=== PATIENT | female | born 1995 | race Caucasian/White ===

== ENCOUNTER 2020-06-15 09:21 | Outpatient (CLI) | payer OTHER, SELFPAY ==
[2020-06-15 09:29] VITALS: BP 123/89; PULSE 82; TEMP 35.8
[2020-06-15 09:44] VITALS: BP 108/69; PULSE 74
[2020-06-15 10:00] VITALS: BP 107/69; PULSE 72
[2020-06-15 10:14] VITALS: BP 108/68; PULSE 67
[2020-06-15 10:18] VITALS: RESP 17
[2020-06-15 10:30] VITALS: BP 119/82; PULSE 66
[2020-06-15 10:43] VITALS: BMI 24.5
== END 2020-06-15 10:43 | disposition home or self-care (01) ==
LOC: OPOB 09:22 → OBGYN 10:40
PROVIDERS: Visit Provider Family Medicine
DX: O26.899 Other specified pregnancy related conditions, unspecified trimester (principal); Z3A.00 Weeks of gestation of pregnancy not specified; R10.9 Unspecified abdominal pain
CPT/HCPCS: 59025; 99211

== ENCOUNTER 2020-06-15 17:40 | Inpatient (IN) | payer OTHER, SELFPAY ==
[2020-06-15] VITALS (53 sets, daily range): BP systolic 101–132; BP diastolic 60–86; PULSE 60–122; RESP 18; TEMP 36.6–36.9; O2SAT 92–98; BMI 24.5
[2020-06-15 18:19] LABS: Basophils # 0.1 10^3/uL (0.0-0.1); Basophils % 0.4 %; Eosinophils # 0.1 10^3/uL (0.0-0.8); Eosinophils % 0.4 %; Hematocrit 36.4 % (37.0-47.0); Hemoglobin 11.8 g/dL (11.5-15.3); Lymphocytes # 1.7 10^3/uL (0.8-4.8); Lymphocytes % 10.2 %; Mean Corpuscular HGB Conc 32.4 g/dL (30.0-36.0); Mean Corpuscular Hemoglobin 29.8 pg (28.0-34.0); Mean Corpuscular Volume 91.9 fL (81-99); Mean Platelet Volume 10.9 fL (7.4-10.4); Monocytes # 0.9 10^3/uL (0.2-0.9); Monocytes % 5.4 %; Neutrophils # 14.01 10^3/uL (1.8-7.7); Neutrophils % 83.2 %; Nucleated Red Blood Cells % 0 %; Platelet Count 307 10^3/cmm (130-400); Red Blood Count 3.96 10^6/uL (4.1-5.3); Red Cell Distribution Width 13.3 % (12.1-15.1); White Blood Count 16.8 10^3/uL (4.0-10.0)
[2020-06-15] MEDS: lactated ringers 1,000 ML 999 ML IV ×2 (19:05→22:33)
--- NOTE | 2020-06-15 19:38 | P.ANESASSM_ITS ---
Pre-Anesthetic Assessment Pre-Anesthetic Assessment: Height/Weight: Height 1.78 m Weight 77.564 kg Temp Pulse Resp BP Pulse Ox 97.9 F 80 18 117/79 96 06/15/20 18:51 06/15/20 19:34 06/15/20 18:51 06/15/20 19:34 06/15/20 19:35 Preop Diagnosis: labor Social: Social History: No alcohol and No tobacco Exam: Pre-Anes Outpt Exam: alert and oriented x 3 History/ROS: No significant history except as noted and No significant co mplaints Anesthetic Plan: ASA status: 2 Anesthesia: Anesthesia Evaluation and Regional (specify below) Other: LABOR EPIDURAL Risk of > 500 ml blood loss (7ml/kg in children): No PFSH Anesthesia Female Reproductive History: Date of last menstrual period: 09/08/19 : 1 Data Anesthesia CBC & Chem 7: 06/15/20 18:00 Other Labs: Laboratory Results - last 48 hr 06/15/20 18:00 WBC 16.8 H RBC 3.96 L Hgb 11.8 Hct 36.4 L MCV 91.9 MCH 29.8 MCHC 32.4 RDW 13.3 Plt Count 307 MPV 10.9 H Neut % (Auto) 83.2 Lymph % (Auto) 10.2 [place] % (Auto) 5.4 Eos % (Auto) 0.4 Baso % (Auto) 0.4 Neut # (Auto) 14.01 H Lymph # (Auto) 1.7 [place] # (Auto) 0.9 Eos # (Auto) 0.1 Baso # (Auto) 0.1 Nucleated RBC % (auto) 0 Nucleated RBCs # 0.0 Cardiac Studies: No Data to Display Anesthesia Procedures Epidural: Time Out Performed: Yes Consents Signed: Procedure Consent Consent: from patient, risks and benefits reviewed and patient agrees to proceed Lumbar Level: L4-L5 Epidural position: sitting Epidural procedure: sterile prep of area, 1% lidocaine to numb the area, 18 g needle, neg for paresthesia, test dose given, 1.5% xylocaine 1:200k epi (3 ML), 0.2% Ropivacaine bolus ml (5 ML), placed PCEA, no systemic response, sterile dressing applied, L.U.D. no apparent complications and 0.2% Ropiavacaine @ mls/hr (13 ML PER HOUR)
[2020-06-15] MEDS: dextrose 5%-lactated ringers 1,000 ML 125 ML IV (22:03)
[2020-06-16] VITALS (23 sets, daily range): BP systolic 97–135; BP diastolic 56–90; PULSE 63–91; RESP 14–16; TEMP 36.4–37.7; O2SAT 96–97
[2020-06-16] MEDS: docusate sodium 100 mg Capsule PO ×2 (08:33→17:24)
[2020-06-16] MEDS: prenatal vitamin Capsule 1 CAP PO (08:33)
[2020-06-16] MEDS: ibuprofen 800 mg tablet PO ×3 (08:33→20:42)
[2020-06-16 15:00] LABS: Hematocrit 31.8 % (37.0-47.0); Hemoglobin 10.1 g/dL (11.5-15.3); Mean Corpuscular HGB Conc 31.8 g/dL (30.0-36.0); Mean Corpuscular Volume 94.4 fL (81-99); Mean Platelet Volume 10.7 fL (7.4-10.4); Platelet Count 232 10^3/cmm (130-400); Red Blood Count 3.37 10^6/uL (4.1-5.3); Red Cell Distribution Width 13.7 % (12.1-15.1); White Blood Count 16.3 10^3/uL (4.0-10.0)
--- NOTE | 2020-06-17 06:56 | P.DS_ITS ---
Discharge Providers HEAVY EQUIPMENT OPERATOR/PAVER Date of Admission: 06/15/20 17:40 Date of Discharge: 06/17/20 Attending Provider at Admission: Olu Ortega MD Attending Provider at Discharge: Olu Ortega MD Primary Care Provider: [facility] Diagnoses at Discharge Discharge Diagnosis (1) 40 weeks gestation of : Status: Acute (2) Spontaneous vaginal delivery: Status: Acute Reason for Visit Reason for Visit: contractions Hospital Course Hospital Course The patient is a 40-week a 1 female who presented to the hospital in active labor. An epidural was placed. An amniotomy was performed. She progressed to complete and had an unremarkable delivery of a healthy-appearing female infant. She had a small vaginal tear that did not require repair. Her course was also unremarkable. She breast-fed well. Her bleeding was within normal limits. Her pain was well controlled. Information Peripartum Data: Delivery Method: Vaginal Physical Exam Narrative: EXAM NARRATIVE: The patient is alert. She appears comfortable. Her heart has a regular rate and rhythm with no murmurs appreciated. Lungs are clear to auscultation bilaterally. Her fundus is firm and below the umbilicus. Urinary Catheter Management^: Valadez: Cath Placed During This Visit: yes, but has since been removed by the nurse Reason for Continuing Indwelling Catheter: Required Immobilization for Trauma or Surgery or Anesthesia Urinary Catheter Date of Insertion: 06/15/20 Urinary Catheter Time of Insertion: 20:11 Date Urinary Catheter Removed: 06/16/20 Time Urinary Catheter Discontinued: 01:10 Discharge Data Data Completed and Pending: Pending at discharge Category Date Time Status Complete Crossmat ch Routine Lab 06/15/20 18:00 Results Rho D Immune Glob ulin Routine Lab 06/15/20 18:00 Results Type and Screen R outine Lab 06/15/20 18:00 Results Labs from last 24 hours 06/16/20 06/16/20 06/15/20 14:35 14:35 18:00 WBC 16.3 H RBC 3.37 L Hgb 10.1 L Hct 31.8 L MCV 94.4 MCH 30.0 MCHC 31.8 RDW 13.7 Plt Count 232 MPV 10.7 H Blood Type O Negative Rho(D) Type Negative / 0 Antibody Screen Negative Screen Negative Cancelled Vitals: Last Vital Signs Temp 98.1 F 06/16/20 19:30 Pulse 78 06/16/20 22:10 Resp 16 06/16/20 22:10 BP 120/77 06/16/20 22:10 Pulse Ox 97 06/16/20 15:32 Discharge Plan Discharge Patient Disposition: Home Condition: Stable Prescriptions: New ibuprofen 800 mg Tablet 800 mg PO TID Qty: 30 RF: 0 -U 106.5-1 mg Capsule 1 cap PO DAILY Qty: 90 RF: 2 Discharge Orders: Discharge Order (Routine); Ordered 06/17/20 Ordered By: Olu Ortega Referrals: Olu Ortega MD [Physician] - 6 Weeks Discharge Diet: Usual diet Discharge Activity: Limit activity as instructed Patient Instructions: Pre-eclampsia and Eclampsia (DC), Bleeding (DC), OB Discharge Report, OB Food/Drug Interaction Guide, OB Home Care, OB Proud Parent Packet, OB Vaginal Deliveries Discharge Attestations HEAVY EQUIPMENT OPERATOR/PAVER Time Spent in Discharge Care*: less than 30 min Specific Discharge Activities: Specific discharge activities: educating patient Coding Level of Care Code Acute Computer Systems Engineer for Chg Fwd Diagnoses 40 weeks gestation of Z3A.40 Spontaneous vaginal delivery O80
[2020-06-17 07:25] VITALS: BP 114/73; PULSE 67; RESP 16; TEMP 36.5
[2020-06-17 07:46] VITALS: BP 118/78; PULSE 85; RESP 16; TEMP 36.5; O2SAT 98
[2020-06-17 08:15] VITALS: BP 118/78; PULSE 85; RESP 16; TEMP 36.5; O2SAT 98
--- NOTE | 2020-06-27 07:53 | P.PCNOB_ITS ---
Delivery Note: Date of delivery: June 16, 2020 Pre-delivery diagnoses: 25-year-old 1 female at 40 weeks estimated gestational age Presented to hospital in active labor Post-delivery diagnoses: Status post Prachi is vaginal delivery Procedure: Spontaneous vaginal delivery Op report anesthesia: Epidural Delivering Physician: Olu Ortega Estimated blood loss (mL): 100 Pre-Delivery Course: The patient is a otherwise healthy 5-year-old female who presented to the hospital in active labor. An epidural was placed. An amniotomy was performed. She then progressed to complete without difficulty. Her otherwise been unremarkable. She was GBS negative. Delivery: DELIVERY: The patient progressed to complete without difficulty. She delivered a female with a weight of 3100 g with Apgars of 9, 10. The baby was delivered from the KEIKO position. The baby's mouth and nose were suctioned at the site of the perineum. The baby was then completely delivered and placed on the mother's abdomen. The cord was then clamped and cut. There was no nuchal cord. There was no meconium. The placenta and 3 vessel cord were delivered intact shortly thereafter. The perineum and vaginal vault were carefully examined. A minor vaginal wall laceration was noted which did not require repair. Both the mother and the baby were in stable condition. Post-Delivery Status: Good A&P Assessment and plan (1) 40 weeks gestation of : Status: Acute (2) Spontaneous vaginal delivery: Status: Acute Coding Level of Care Code Acute Agriculture Instructor for Chg Fwd Diagnoses 40 weeks gestation of Z3A.40 Spontaneous vaginal delivery O80
== END 2020-06-17 08:15 | disposition home or self-care (01) | DRG 807 ==
LOC: OPOB 17:49 → OBGYN 17:49
PROVIDERS: Admitting Provider Family Medicine; Visit Provider Family Medicine
DX: O80 Encounter for full-term uncomplicated delivery (principal); Z37.0 Single live birth; Z3A.40 40 weeks gestation of pregnancy
CPT/HCPCS: 12345; 36415; 51702; 59025; 59409; 85025; 85027; 85460; 86850; 86900; 90384; 96372; 99211; J2795

== ENCOUNTER → 2022-01-09 13:42 | Outpatient (BNVA) | payer OTHER, SELFPAY | PROVIDERS: Visit Provider Obstetrics & Gynecology | DX: Z34.91 Encounter for supervision of normal pregnancy, unspecified, first trimester (principal); Z3A.17 17 weeks gestation of pregnancy | CPT/HCPCS: 76801 ==

== ENCOUNTER → 2022-01-20 13:00 | Outpatient (BNVA) | payer OTHER, SELFPAY | PROVIDERS: Visit Provider Obstetrics & Gynecology | DX: O99.282 Endocrine, nutritional and metabolic diseases complicating pregnancy, second trimester (principal); R31.9 Hematuria, unspecified; E07.9 Disorder of thyroid, unspecified; Z3A.00 Weeks of gestation of pregnancy not specified | CPT/HCPCS: 80307; 84315; 84443; 85025; 86592; 86762; 86803; 86850; 86900; 87086; 87340; 87491; 87591; 87806 ==

== ENCOUNTER → 2022-02-16 08:09 | Outpatient (BNVA) | payer OTHER, SELFPAY | PROVIDERS: Visit Provider Obstetrics & Gynecology | DX: Z34.92 Encounter for supervision of normal pregnancy, unspecified, second trimester (principal) | CPT/HCPCS: 76805 ==

== ENCOUNTER → 2022-02-20 16:32 | Outpatient (BNVA) | payer OTHER, SELFPAY | PROVIDERS: Visit Provider Obstetrics & Gynecology | DX: Z34.82 Encounter for supervision of other normal pregnancy, second trimester (principal); Z3A.00 Weeks of gestation of pregnancy not specified | CPT/HCPCS: 87086 ==

== ENCOUNTER → 2022-03-27 10:50 | Outpatient (BNVA) | payer OTHER, SELFPAY | PROVIDERS: Visit Provider Obstetrics & Gynecology | DX: Z34.92 Encounter for supervision of normal pregnancy, unspecified, second trimester (principal); Z3A.00 Weeks of gestation of pregnancy not specified | CPT/HCPCS: 82950; 84315; 84443; 85027 ==

== ENCOUNTER → 2022-04-03 08:33 | Outpatient (BNVA) | payer OTHER, SELFPAY | PROVIDERS: Visit Provider Nurse Practitioner Women's Health | DX: Z34.92 Encounter for supervision of normal pregnancy, unspecified, second trimester (principal) | CPT/HCPCS: 84315; 86850 ==

== ENCOUNTER → 2022-04-24 07:29 | Outpatient (BNVA) | payer OTHER, SELFPAY | PROVIDERS: Visit Provider Obstetrics & Gynecology | DX: Z34.90 Encounter for supervision of normal pregnancy, unspecified, unspecified trimester (principal); Z34.82 Encounter for supervision of other normal pregnancy, second trimester | CPT/HCPCS: 84315; 84443 ==

== ENCOUNTER → 2022-05-08 07:47 | Outpatient (BNVA) | payer OTHER, SELFPAY | PROVIDERS: Visit Provider Nurse Practitioner Women's Health | DX: Z34.90 Encounter for supervision of normal pregnancy, unspecified, unspecified trimester (principal); O99.019 Anemia complicating pregnancy, unspecified trimester; R31.9 Hematuria, unspecified; E03.9 Hypothyroidism, unspecified; O99.280 Endocrine, nutritional and metabolic diseases complicating pregnancy, unspecified trimester; O26.899 Other specified pregnancy related conditions, unspecified trimester; Z34.80 Encounter for supervision of other normal pregnancy, unspecified trimester; Z67.91 Unspecified blood type, Rh negative | CPT/HCPCS: 84315; 85025; 87086 ==

== ENCOUNTER 2022-05-14 16:35 | Outpatient (CLI) | payer OTHER, SELFPAY ==
[2022-05-14 18:13] LABS: Ferritin 8 ng/mL (15-150); Iron 43 ug/dL (37-145); Percent Saturation 9.1 % (20-50); Total Iron Binding Capacity 471 mcg/dl; Unsaturated Iron Binding 428 ug/dL (112-347)
[2022-05-14 18:21] LABS: Vitamin B12 422 pg/mL (232-1245)
[2022-05-14 19:24] LABS: Folate Level 17.3 ng/mL (4.8-37.3)
== END 2022-05-14 16:36 | disposition home or self-care (01) ==
PROVIDERS: PCP Nurse Practitioner Women's Health; Visit Provider Nurse Practitioner Women's Health
DX: O99.019 Anemia complicating pregnancy, unspecified trimester (principal); Z3A.00 Weeks of gestation of pregnancy not specified
CPT/HCPCS: 36415; 82607; 82728; 82746; 83540; 83550

== ENCOUNTER → 2022-05-15 08:48 | Outpatient (BNVA) | payer OTHER, SELFPAY | PROVIDERS: PCP Nurse Practitioner Women's Health; Visit Provider Family Medicine | DX: O99.019 Anemia complicating pregnancy, unspecified trimester (principal) | CPT/HCPCS: 85025 ==

== ENCOUNTER → 2022-05-29 08:50 | Outpatient (BNVA) | payer OTHER, SELFPAY | PROVIDERS: PCP Nurse Practitioner Women's Health; Visit Provider Obstetrics & Gynecology | DX: Z34.90 Encounter for supervision of normal pregnancy, unspecified, unspecified trimester (principal); Z3A.00 Weeks of gestation of pregnancy not specified | CPT/HCPCS: 84315; 87081 ==

== ENCOUNTER → 2022-06-05 09:17 | Outpatient (BNVA) | payer OTHER, SELFPAY | PROVIDERS: PCP Nurse Practitioner Women's Health; Visit Provider Obstetrics & Gynecology | DX: Z34.80 Encounter for supervision of other normal pregnancy, unspecified trimester (principal); O99.019 Anemia complicating pregnancy, unspecified trimester; O26.899 Other specified pregnancy related conditions, unspecified trimester; O99.280 Endocrine, nutritional and metabolic diseases complicating pregnancy, unspecified trimester; Z67.91 Unspecified blood type, Rh negative; R31.9 Hematuria, unspecified; E03.9 Hypothyroidism, unspecified | CPT/HCPCS: 84315; 84443 ==

== ENCOUNTER → 2022-06-12 08:19 | Outpatient (BNVA) | payer OTHER, SELFPAY | PROVIDERS: PCP Nurse Practitioner Women's Health; Visit Provider Obstetrics & Gynecology | DX: Z34.80 Encounter for supervision of other normal pregnancy, unspecified trimester (principal); Z3A.00 Weeks of gestation of pregnancy not specified | CPT/HCPCS: 84315; 87086 ==

== ENCOUNTER → 2022-06-25 08:00 | Outpatient (BNVA) | payer OTHER, SELFPAY | PROVIDERS: PCP Nurse Practitioner Women's Health; Visit Provider Obstetrics & Gynecology | DX: O48.0 Post-term pregnancy (principal); Z3A.00 Weeks of gestation of pregnancy not specified | CPT/HCPCS: 76819 ==

== ENCOUNTER 2022-06-29 19:45 | Outpatient (CLI) | payer OTHER, SELFPAY ==
[2022-06-29] VITALS (11 sets, daily range): BP systolic 110–123; BP diastolic 67–87; PULSE 76–120; RESP 18; TEMP 36.7; BMI 32.9
== END 2022-06-29 22:20 | disposition home or self-care (01) ==
LOC: OPOB 19:46 → OBGYN 19:47
PROVIDERS: PCP Nurse Practitioner Women's Health; Visit Provider Obstetrics & Gynecology
DX: O47.9 False labor, unspecified (principal); Z3A.00 Weeks of gestation of pregnancy not specified
CPT/HCPCS: 59025; 99211

== ENCOUNTER 2022-06-30 13:50 | Inpatient (IN) | payer OTHER, SELFPAY ==
[2022-06-30] VITALS (64 sets, daily range): BP systolic 95–138; BP diastolic 56–80; PULSE 75–177; RESP 15–18; TEMP 36.5–37.2; O2SAT 81–100; BMI 25.9
[2022-06-30 13:54] LABS: Basophils % 0.3 %; Eosinophils # 0.2 10^3/uL (0.0-0.8); Eosinophils % 1.5 %; Hematocrit 34.1 % (37.0-47.0); Hemoglobin 10.6 g/dL (11.5-15.3); Lymphocytes # 1.9 10^3/uL (0.8-4.8); Lymphocytes % 15.7 %; Mean Corpuscular HGB Conc 31.1 g/dL (30.0-36.0); Mean Corpuscular Hemoglobin 27.6 pg (28.0-34.0); Mean Corpuscular Volume 88.8 fl (81-99); Mean Platelet Volume 10.5 fL (7.4-10.4); Monocytes # 0.7 10^3/uL (0.2-0.9); Neutrophils # 9.35 10^3/uL (1.8-7.7); Neutrophils % 75.8 %; Nucleated Red Blood Cells % 0 %; Platelet Count 291 10^3/cmm (130-400); Red Blood Count 3.84 10^6/uL (4.1-5.3); Red Cell Distribution Width 15.1 % (12.1-15.1); White Blood Count 12.3 10^3/uL (4.0-10.0)
[2022-06-30] MEDS: lactated ringers 1,000 ML 999 ML IV (13:55)
--- NOTE | 2022-06-30 14:38 | ANES.PREANE2 ---
Pre-Anesthetic Assessment Height/Weight: Height 1.78 m Weight 82.1 kg Pulse Resp BP Pulse Ox 93 16 107/74 100 06/30/22 14:36 06/30/22 12:57 06/30/22 14:36 06/30/22 14:23 Familial anesthetic complications: none Was Beta Compa taken within 24 hours: N/A Was Clonidine taken within 24 hours: N/A Social No alcohol and No tobacco Exam alert, oriented x 3, clear to auscultation bilaterally and regular rate & rhythm Airway Submandibular: within normal limits Cervical ROM: within normal limits Mallampati: Class II Dentition: full CV/HEM Anemia Metabolic Thyroid Disease Anesthetic Plan ASA status: 2 Anesthesia: Regional (specify below) (Labor epidural) Medications/Allergies Home Medications Medication Instructions Recorded Confirmed Last Taken Type levothyroxine 50 mcg tablet 50 mcg PO DAILY #30 tabs 05/08/22 06/30/22 06/28/22 08:00 Rx [id number] 1 mg tab PO 06/30/22 06/28/22 08:00 History tablet Allergies Allergy/AdvReac Type Severity Reaction Status Date / Time No Known Allergies Allergy Verified 06/30/22 11:24 Current Medications Generic Name Dose Route Start Last Admin Trade Name Freq PRN Reason Stop Dose Admin Lactated Ringer's 1,000 mls @ 999 mls/hr 06/30/22 13:33 06/30/22 13:55 Lactated Ringers IV 999 mls/hr .Q1H1M PRN Administration BLEEDING Ropivacaine 200 mg in 100 mls @ 13 mls/hr 06/30/22 13:45 06/30/22 14:27 Naropin Premix EPIDURAL 13 mls/hr .Q7H42M TRISTEN Administration PFSH Anesthesia Medical History No pertinent past medical history neghx: htn,dm,dvt/pe PCP: [facility] Surgical History S/P appendectomy Family History Grandfather Stroke maternal Mother Thyroid condition Denies family history of Colon cancer Ovarian cancer Diabetes Clotting disorder Heart disease Hyperlipidemia Breast cancer Anesthesia complication Bleeding disorder Hypertension Uterine cancer Female Reproductive History : 2 Data Anesthesia 06/30/22 13:40 Short CBC 06/30/22 Range/Units 13:40 WBC 12.3 H (4.0-10.0) 10^3/uL Hgb 10.6 L (11.5-15.3) g/dL Hct 34.1 L (37.0-47.0) % MCV 88.8 (81-99) fl Plt Count 291 (130-400) 10^3/cmm Neut % (Auto) 75.8 % Neut # (Auto) 9.35 H (1.8-7.7) 10^3/uL Cardiac Studies: No Data to Display
--- NOTE | 2022-06-30 14:40 | ANES.PROC ---
Anesthesia Procedures Procedure/Date: 06/30/22 Epidural: Time Out Performed: Yes Consents Signed: Procedure Consent Consent: requested by attending/covering physician, from patient, risks and benefits reviewed and patient agrees to proceed Lumbar Level: L3-L4 Epidural position: sitting Epidural procedure: sterile prep of area, 1% lidocaine to numb the area, 18 g needle, neg for paresthesia, test dose given, 1.5% xylocaine 1:200k epi, placed PCEA, no systemic response, sterile dressing applied and 0.2% Ropiavacaine @ mls/hr (13) Additional Comments: MEDHAT 5cm, cath at 10cm
[2022-06-30] MEDS: dextrose 5%-lactated ringers 1,000 ML 125 ML IV (18:09)
[2022-06-30] MEDS: ondansetron 2 mg/ML SDV 2 mL 4 MG IVP (18:10)
--- NOTE | 2022-06-30 20:00 | P.PCNOB_ITS ---
Delivery Note: Date of delivery: June 30, 2022 Pre-delivery diagnoses: Term Post-delivery diagnoses: Current delivered Procedure: Spontaneous vaginal delivery Delivering Physician: Stiven Soriano MD Estimated blood loss (mL): 300 Post-Delivery Status: The patient was noted to be complete and pushing, so was placed in the dorsal lithotomy position, prepped and draped in the usual sterile fashion for a vagi nal delivery. Pt. Noted to have epidural anesthesia. At 1950 the patient delivered a viable term male at 40 weeks 6 days weighing 3770 g with scores of 8 and 9 at one and five minutes, respectively. The vertex was delivered spontaneously over intact perineum. The patient was asked to push and the head delivered spontaneously in the KEIKO position, over an intact perineum. A nuchal cord was checked and 1 noted, and delivered through around head as necessary. The anterior shoulder delivered easily and the posterior shoulder followed. The remainder of the infant was easily delivered and the oropharynx and nasopharynx was bulb suctioned. The was noted to have spontaneous cry and spontaneous movement of all four extremities. The cord was clamped x 2 and cut and noted to have 2 arteries and one vein. The infant was passed to the mother's abdomen where nursing personnel were in attendance. Cord blood sample was then obtained. The placenta delivered intact spontaneously and the uterus was explored. 20 units of Pitocin was placed in the IV bag to firm the uterus. Examination of the cervix and vaginal vault did not reveal any lacerations. A vaginal pack was then placed. Examination of the perineum showed no lacerations. The vaginal pack was then removed. The patient tolerated this procedure well, and recovered in L&D with her infant in their LDR room. All sponge and needle counts were correct. History History History 2 Term 1 0 Miscarriages/Ectopic 0 Living Children 1 Coding Level of Care Code Acute Code for Chg Fwd Diagnoses
--- NOTE | 2022-06-30 20:00 | PM.OPHPUD ---
Labor & Delivery H&P Update Date of Procedure: June 30, 2022 Date H&P Performed: 06/30/22 H&P update information: I have reviewed H&P completed within last 30 days, I have examined patient prior to procedure and No changes to prior documentation Admission Diagnosis:
[2022-07-01] VITALS (10 sets, daily range): BP systolic 93–120; BP diastolic 50–72; PULSE 67–87; RESP 14–18; TEMP 36.4–36.9; O2SAT 97–99
[2022-07-01] MEDS: docusate sodium 100 mg Capsule PO ×2 (08:31→18:31)
[2022-07-01] MEDS: prenatal vitamin Capsule 1 CAP PO (08:31)
[2022-07-01] MEDS: ibuprofen 800 mg tablet PO ×2 (08:31→14:10)
--- NOTE | 2022-07-01 08:46 | ANE.PACU2 ---
Inpatient post-anesthesia follow up: Airway intact: Yes Vital signs: Temperature 98.0 F Pulse Rate 67 Respiratory Rate 16 Blood Pressure 99/62 Pulse Oximetry 99 Oxygen Delivery Me thod Room Air Oxygen Flow Rate Fraction of Inspir ed Oxygen Hydration adequate: Yes Nausea and vomiting: No Pain level: 2 Mental status: Baseline
[2022-07-01 09:03] LABS: Hematocrit 31.4 % (37.0-47.0); Hemoglobin 9.6 g/dL (11.5-15.3); Mean Corpuscular HGB Conc 30.6 g/dL (30.0-36.0); Mean Corpuscular Hemoglobin 27.5 pg (28.0-34.0); Mean Platelet Volume 10.6 fL (7.4-10.4); Platelet Count 206 10^3/cmm (130-400); Red Blood Count 3.49 10^6/uL (4.1-5.3); Red Cell Distribution Width 14.9 % (12.1-15.1); White Blood Count 15.2 10^3/uL (4.0-10.0)
--- NOTE | 2022-07-01 14:47 | PM.OBGYDC ---
Discharge Providers GROUND WORKER Date of Admission: 06/30/22 13:50 Date of Discharge: 07/01/22 Attending Provider at Admission: Stiven Soriano MD Attending Provider at Discharge: Stiven Soriano MD Primary GROUND WORKER: Stiven Soriano MD Primary Care Provider: Stiven Soriano MD Reason for Visit Reason for Visit: contractions Brief History: Ms. Lam is a 27 year old established patient with an LMP of 09/17/2020, DAMON 06/24/2022, placing her at 40-6/7 weeks. who has been receiving care from [facility] [place] [facility]. CC: Onset of labor at term. HPI: Received appropriate care. complicated by anemia and thyroid disease. She has been taking daily vitamins since the start of care. labs have all been normal, including negative for HIV. She is Rh- and received RhoGAM at 28 weeks. she was found to negative for Group B Strep from screening at 36 weeks. She has gained approximately 37 lbs throughout the . She denies a history of HTN during . Glucose tolerance screening for gestational diabetes was negative. Hospital Course Hospital Course Mrs. Lam 27-year-old female G2, P1 with an estimated gestational age of 40 weeks +6 days. Came to labor and delivery complaining of contractions after seeing at the clinic. She was admitted to labor and delivery in early active labor. She progressed to had a spontaneous vaginal delivery without complications. and observation uneventful. She is after vital hemodynamically stable the day 1. Tolerating diet well. Ambulating without difficulty. Breast-feeding without difficulty. Plans to take oral contraceptive pill for contraception when she comes back at the visit. She was counseled regarding pelvic rest for 6 weeks (no sex, no tampons, no vaginal douches). Return to the emergency room if any fever, increased bleeding or pain. Information Peripartum Data: Delivery Method: Vaginal Physical Exam Narrative: GA; alert and oriented x 3 HEENT: normal Breasts: engorged Nipples - skin intact Lungs; clear to auscultation Heart: regular rhythm, no murmurs. Abd: Appropriately tender. BS+. Uterine fundus below umbilicus. No Fundal Tenderness. Perineum: normal lochia. Extremities: no edema, no cyanosis, no tenderness. Urinary Catheter Management: Valadez: Cath Placed During This Visit: yes, but has since been removed by the nurse Reason for Continuing Indwelling Catheter: Decision to DC Catheter Urinary Catheter Date of Insertion: 06/30/22 Urinary Catheter Time of Insertion: 14:39 Date Urinary Catheter Removed: 06/30/22 Time Urinary Catheter Discontinued: 19:39 History History History 2 Term 1 0 Miscarriages/Ectopic 0 Living Children 1 Discharge Data Studies Completed and Pending Pending at discharge Category Date Time Status Complete Crossmatch Routine Lab 06/30/22 13:40 Results Rho D Immune Globulin Routine Lab 06/30/22 13:40 Results Type and Screen Routine Lab 06/30/22 13:40 Results Laboratory Results WBC 15.2 10^3/uL (4.0-10.0) H 07/01/22 08:45 RBC 3.49 10^6/uL (4.1-5.3) L 07/01/22 08:45 Hgb 9.6 g/dL (11.5-15.3) L 07/01/22 08:45 Hct 31.4 % (37.0-47.0) L 07/01/22 08:45 MCV 90.0 fl (81-99) 07/01/22 08:45 MCH 27.5 pg (28.0-34.0) L 07/01/22 08:45 MCHC 30.6 g/dL (30.0-36.0) 07/01/22 08:45 RDW 14.9 % (12.1-15.1) 07/01/22 08:45 Plt Count 206 10^3/cmm (130-400) 07/01/22 08:45 MPV 10.6 fL (7.4-10.4) H 07/01/22 08:45 Neut % (Auto) 75.8 % 06/30/22 13:40 Lymph % (Auto) 15.7 % 06/30/22 13:40 [place] % (Auto) 6.0 % 06/30/22 13:40 Eos % (Auto) 1.5 % 06/30/22 13:40 Baso % (Auto) 0.3 % 06/30/22 13:40 Neut # (Auto) 9.35 10^3/uL (1.8-7.7) H 06/30/22 13:40 Lymph # (Auto) 1.9 10^3/uL (0.8-4.8) 06/30/22 13:40 [place] # (Auto) 0.7 10^3/uL (0.2-0.9) 06/30/22 13:40 Eos # (Auto) 0.2 10^3/uL (0.0-0.8) 06/30/22 13:40 Baso # (Auto) 0.0 10^3/uL (0.0-0.1) 06/30/22 13:40 Nucleated RBC % (auto) 0 % 06/30/22 13:40 Nucleated RBCs # 0.0 /100WBC 06/30/22 13:40 Blood Type O Negative 06/30/22 13:40 Rho(D) Type Negative 06/30/22 13:40 Antibody Screen Negative 06/30/22 13:40 Screen Negative (Negative) 06/30/22 08:45 Vitals Last Vital Signs Temp 98.2 F 07/01/22 10:00 Pulse 87 07/01/22 10:00 Resp 16 07/01/22 10:00 BP 118/67 07/01/22 10:00 Pulse Ox 98 07/01/22 10:00 O2 Del Method Room Air 07/01/22 08:00 Discharge Plan Discharge Patient Disposition: Home Condition: Stable Prescriptions: New docusate sodium [Colace] 100 mg capsule 100 mg PO BID Qty: 60 0RF acetaminophen 325 mg capsule 325 mg PO Q4H PRN (Reason: fever or pain) Qty: 60 0RF ferrous sulfate [Iron (ferrous sulfate)] 325 mg (65 mg iron) tablet 325 mg PO BID Qty: 60 0RF ibuprofen 800 mg tablet 800 mg PO TID PRN (Reason: pain) Qty: 60 0RF Continued levothyroxine 50 mcg tablet 50 mcg PO DAILY Qty: 30 1RF 1 mg Tablet PO Discharge Orders: Discharge Order (Routine); Ordered 07/01/22 Ordered By: Stiven Soriano Discharge Diet: Usual diet Discharge Activity: Limit activity as instructed Patient Instructions: Depression (DC), Bleeding (DC), Preeclampsia and Eclampsia After Delivery (GEN), Hemorrhage (DC), OB Discharge Report, OB Food/Drug Interaction Guide, OB Care at Home, Opioid Safety, OB Home Care, OB Proud Parent Packet, OB Vaginal Deliveries - [facility] Activity Restrictions/Additional Instructions: 1. Please call [facility] on next working day to make your post appointment in 6 weeks. 2. Please stay home until you come back to the clinic on first post-operative check up. 3. Please follow instructions on your medications CAREFULLY. 4. If you have abdominal incision, do not cover it unless dressing is necessary because of drainage. OK to shower, but avoid bath. Leave steri-strips until they fall off. If they are still on one week after surgery, you may remove them. 5. If you had vaginal surgery or vaginal repair, Dr. Soriano may instruct you to take SITZ bath. 6. Yellow, blood tinged odorous vaginal discharge is usually normal after hysterectomy or vaginal surgeries. 7. No sexual intercourse, tampons, or douches until you are completely released from the post-operative care. 8. Avoid constipation by eating right and maybe using some Metamucil or Milk of Magnesia. 9. All prescription refills are given during the working hours. Please do no wait till it runs out. Call the clinic at [phone] before your medication runs out. The clinic will get in touch with your doctor to prescribe medications if necessary. 10. Please remain within 40 mile radius from our hospital because emergencies do happen now and then during the post-operative period. 11. If you have stairs at home, take one step at a time slowly and minimize the number of trips. It helps to stay in one floor for the next few days. No lifting except what you can lift by one hand until you are released from the post-operative care. 12. Driving is discouraged until you are well healed. It may be 3-4 weeks before you feel strong enough to drive. You should be able to turn and look through the rear window without pain and you should be able to push the brake pedal very hard without pain before you drive. No fast rules, but SAFETY should be your primary concern. DO NOT drive if you are on sedating medications such as narcotics. 13. Call the clinic (during working hours) to make urgent appointment or go to the Emergency room, if any of the following occurs: i. Vaginal bleeding becomes heavy, more than a period. ii. Incision becomes red and sore, or drains pus. iii. Your temperature is over 100.4 or you have chill. iv. IV site becomes red and swollen (a little ``knot?? is usually OK) v. Persistent nausea and vomiting vi. Persistent constipation or diarrhea vii. Rash or allergic reaction to medications. Discharge Attestations GROUND WORKER Time Spent in Discharge Care*: greater than 30 min Coding Level of Care Code Acute Code for Chg Fwd Diagnoses
== END 2022-07-01 20:20 | disposition home or self-care (01) | DRG 807 ==
LOC: OPOB 20:36 → OBGYN 20:36
PROVIDERS: Admitting Provider Obstetrics & Gynecology; PCP Nurse Practitioner Women's Health; Visit Provider Obstetrics & Gynecology
DX: O48.0 Post-term pregnancy (principal); Z37.0 Single live birth; O99.02 Anemia complicating childbirth; D64.9 Anemia, unspecified; O99.284 Endocrine, nutritional and metabolic diseases complicating childbirth; E03.9 Hypothyroidism, unspecified; O69.81X0 Labor and delivery complicated by cord around neck, without compression, not applicable or unspecified; O26.893 Other specified pregnancy related conditions, third trimester; R31.9 Hematuria, unspecified; Z67.41 Type O blood, Rh negative; Z3A.40 40 weeks gestation of pregnancy; Z79.899 Other long term (current) drug therapy
CPT/HCPCS: 36415; 36430; 51702; 59025; 59409; 84315; 85025; 85027; 85460; 86850; 86900; 90384; 96372; 96374; 99211; J2405; J2795; J7040; J7120; J7121